=== PATIENT | male | born 1945 | race Two or more races ===

== ENCOUNTER → 2019-05-15 | Emergency (ER) | payer OTHER, MEDICAID ==
[~2019-05-15] VITALS: Ht 170.2 cm; Wt 71.2 kg
[~2019-05-15] MED LIST: CLINDAMYCIN 600 MG/4 ML VL IM ONE; LISI-285 PO; cefTRIAXone W LIDOCAINE 1 GM IM IM ONE
[2019-05-15 13:14] LABS: Basophils # (auto) 0.1 10 ^3/uL (0-0.2); Basophils % (auto) 1.4 % (0.0-2.0); Eosinophils # (auto) 0.2 10 ^3/uL (0-0.8); Hematocrit 34.5 % (41.0-53.0); Hemoglobin 11.6 g/dL (13.5-17.5); Lymphocytes # (auto) 1.4 10 ^3/uL (0.4-5.4); Lymphocytes % (auto) 14.8 % (10.0-50.0); Mean Corpuscular Hemoglobin 29.6 pg (28.0-32.0); Mean Corpuscular Hgb Conc. 33.5 g/dL (32.0-36.0); Mean Corpuscular Volume 88.4 fL (80.0-100.0); Monocytes # (auto) 0.7 10 ^3/uL (0-1.3); Monocytes % (auto) 8.1 % (0.0-12.0); Neutrophils # (auto) 6.7 10 ^3/uL (1.6-8.6); Neutrophils % (auto) 73.7 % (37.0-80.0); Platelet Count (auto) 382 10^3/uL (140-450); Red Cell Distribution Width 13.9 % (11.8-14.3); White Blood Cell 9.1 10^3/uL (4.4-10.8)
[2019-05-15 13:33] LABS: Albumin 2.7 g/dL (3.4-5.0); Calcium 8.7 mg/dL (8.5-10.1); Potassium 4.8 mmol/L (3.5-5.1)
[2019-05-15 13:35] LABS: BUN/Creatinine Ratio 10.9
[2019-05-15 13:37] LABS: Bilirubin, Total 0.3 mg/dL (0.2-1.0); Total Protein 7.6 g/dL (6.4-8.2)
[2019-05-15 15:54] VITALS: BP 164/90
== END | disposition home or self-care (01) ==
LOC: ER 11:45
DX: S91.312A Laceration without foreign body, left foot, initial encounter (principal); E11.9 Type 2 diabetes mellitus without complications; I10 Essential (primary) hypertension; W26.8XXA Contact with other sharp object(s), not elsewhere classified, initial encounter; Y93.89 Activity, other specified; Y99.8 Other external cause status; Y92.89 Other specified places as the place of occurrence of the external cause
CPT/HCPCS: 36415; 73700; 80053; 82962; 85025; 96372; 99284; J0696

== ENCOUNTER 2023-01-07 20:54 | Inpatient (IN) | payer OTHER, MEDICAID ==
[~2023-01-07] VITALS: Ht 162.6 cm; Wt 59.2 kg
[~2023-01-07 20:54] MED LIST changes: -CLINDAMYCIN 600 MG/4 ML VL IM ONE; -cefTRIAXone W LIDOCAINE 1 GM IM IM ONE
[2023-01-08] VITALS (10 sets, daily range): BP systolic 126–155; BP diastolic 66–96; PULSE 76–101; RESP 17–18; TEMP 37; O2SAT 92–98
[2023-01-08] MEDS ORDERED: ONDANSETRON HCL 4 MG/2 ML VIAL IV PRN (00:45)
[2023-01-08] MEDS ORDERED: DOCUSATE SOD 100 MG CAP PO PRN (00:45)
[2023-01-08] MEDS ORDERED: IPRATROPIUM BROM 0.5 MG/2.5ML INH SOL NEB PRN (00:45)
[2023-01-08] MEDS ORDERED: MORPHINE SULFATE INJ 2 MG/ml SYRG IV PRN (00:45)
[2023-01-08] MEDS ORDERED: ALBUTEROL SULF 2.5 MG/0.5ML(0.5%) NEB SOLN NEB PRN (00:45)
[2023-01-08] MEDS ORDERED: ACETAMINOPHEN 325 MG TAB PO PRN (00:45)
[2023-01-08] MEDS ORDERED: NITROGLYCERIN 0.4 MG SL TAB SL PRN (00:45)
[2023-01-08] MEDS ORDERED: DEXTROSE (50%) 50ML SYRG IV PRN (01:00)
[2023-01-08] MEDS ORDERED: cloNIDine HCL 0.1 MG TAB PO PRN (01:15)
[2023-01-08] MEDS ORDERED: LABETALOL HCL 5 MG/ML 4ML SYRINGE IV PRN (01:15)
[2023-01-08] MEDS: cefTRIAXone 1GM/50ML D5W 50 ML IV SCH ×2 (02:53→21:19)
[2023-01-08 06:33] LABS: Basophils # (auto) 0.1 10 ^3/uL (0-0.2); Basophils % (auto) 0.7 % (0.0-2.0); Eosinophils # (auto) 0.1 10 ^3/uL (0-0.8); Eosinophils % (auto) 1.3 % (0.0-7.0); Hematocrit 33.3 % (41.0-53.0); Lymphocytes % (auto) 11.5 % (10.0-50.0); Mean Corpuscular Volume 93.7 fL (80.0-100.0); Monocytes # (auto) 0.7 10 ^3/uL (0-1.3); Monocytes % (auto) 8.4 % (0.0-12.0); Neutrophils % (auto) 78.1 % (37.0-80.0); Nucleated Red Blood Cells % 0.1 %; Red Blood Cells 3.55 10^6/uL (4.5-5.90); Red Cell Distribution Width 15.2 % (11.8-14.3); White Blood Cell 8.9 10^3/uL (4.4-10.8)
[2023-01-08] MEDS: ACCU-CHEK COMFORT CURVE STRIP VI SCH ×4 (06:33→21:19)
[2023-01-08] MEDS: InsuLIN REG 1unit/0.01ml Soln (100units/ml) SC SCH ×4 (06:42→21:27)
[2023-01-08] MEDS: HEPARIN SODIUM (PORCINE) 5000 UNITS/ML 1ML VIAL SC SCH ×2 (10:00→21:19)
[2023-01-08] MEDS ORDERED: AZITHROMYCIN 500MG/ 250ML 250 ML IV SCH (10:00)
[2023-01-08] MEDS: amLODIPine BESYLATE 5 MG TAB PO SCH (10:49)
[2023-01-08 11:07] LABS: Albumin 3.4 g/dL (3.2-4.8); Alkaline Phosphatase 77 U/L (46-116); Anion Gap 7 (5-15); Aspartate Aminotransferase 8 U/L (13-40); BUN/Creatinine Ratio 5.2 (10.0-20.0); Bilirubin, Total 0.4 mg/dL (0.2-1.0); Blood Urea Nitrogen 17 mg/dL (9-23); Calcium 8.5 mg/dL (8.5-10.1); Carbon Dioxide 27 mmol/L (20-30); Chloride 104 mmol/L (98-107); Glucose 184 mg/dL (74-106); Phosphorus 2.6 mg/dL (2.4-5.1); Potassium 4.9 mmol/L (3.5-5.1); Sodium 138 mmol/L (136-145); Total Protein 6.6 g/dL (5.7-8.2)
[2023-01-08 11:14] LABS: Alanine Aminotransferase < 9 U/L (7-40)
[2023-01-08 11:44] LABS: Magnesium 1.9 mg/dL (1.6-2.6)
[2023-01-08] MEDS ORDERED: CLON0.1T PO (15:25)
[2023-01-08] MEDS ORDERED: PANT40T PO (15:25)
[2023-01-08] MEDS ORDERED: ATOR20TA50 PO (15:25)
[2023-01-08] MEDS ORDERED: AMLO1TAB23 PO (15:25)
[2023-01-08] MEDS ORDERED: AMOX500T86 PO (15:25)
[2023-01-08] MEDS ORDERED: ATORVASTATIN 20 MG TAB PO SCH (22:00)
[2023-01-09 05:00] VITALS: BP_SYST 140; BP_SYST 150; BP_DIAS 70; BP_DIAS 89; PULSE 80; RESP 17; TEMP 98.1; O2SAT 95
[2023-01-09] MEDS: ACCU-CHEK COMFORT CURVE STRIP VI SCH (06:09)
[2023-01-09] MEDS: InsuLIN REG 1unit/0.01ml Soln (100units/ml) SC SCH (06:09)
[2023-01-09 06:57] LABS: Anion Gap 8 (5-15); Carbon Dioxide 25 mmol/L (20-30); Chloride 101 mmol/L (98-107); Potassium 5.3 mmol/L (3.5-5.1); Sodium 134 mmol/L (136-145)
[2023-01-09 06:58] LABS: Calcium 8.4 mg/dL (8.5-10.1)
[2023-01-09] MEDS ORDERED: SODIUM CHL 0.9% 1000 ML BAG XX ONE ×2 (07:00)
[2023-01-09 07:03] LABS: BUN/Creatinine Ratio 6.3 (10.0-20.0); Glucose 91 mg/dL (74-106)
[2023-01-09 07:04] LABS: Basophils # (auto) 0.1 10 ^3/uL (0-0.2); Basophils % (auto) 1.1 % (0.0-2.0); Eosinophils # (auto) 0.6 10 ^3/uL (0-0.8); Eosinophils % (auto) 7.6 % (0.0-7.0); Hematocrit 31.7 % (41.0-53.0); Hemoglobin 10.5 g/dL (13.5-17.5); Lymphocytes # (auto) 1.4 10 ^3/uL (0.4-5.4); Lymphocytes % (auto) 17.4 % (10.0-50.0); Mean Corpuscular Hemoglobin 31.4 pg (28.0-32.0); Mean Corpuscular Hgb Conc. 33.2 g/dL (32.0-36.0); Mean Corpuscular Volume 94.6 fL (80.0-100.0); Monocytes # (auto) 0.8 10 ^3/uL (0-1.3); Monocytes % (auto) 10.3 % (0.0-12.0); Neutrophils % (auto) 63.6 % (37.0-80.0); Nucleated Red Blood Cells % 0.1 %; Red Blood Cells 3.35 10^6/uL (4.5-5.90); Red Cell Distribution Width 15.7 % (11.8-14.3); White Blood Cell 7.9 10^3/uL (4.4-10.8)
[2023-01-09 07:08] LABS: Blood Urea Nitrogen 27 mg/dL (9-23)
[2023-01-09 07:28] VITALS: O2SAT 95
[2023-01-09 08:00] VITALS: PULSE 98; RESP 18; O2SAT 98
[2023-01-09] MEDS: HEPARIN SODIUM (PORCINE) 5000 UNITS/ML 1ML VIAL SC SCH (10:00)
[2023-01-09] MEDS: amLODIPine BESYLATE 5 MG TAB PO SCH (10:00)
== END 2023-01-09 10:30 | disposition home or self-care (01) | DRG 202 ==
LOC: TELE-WESTW 01-08 00:06 → UNDOADMIN 01-08 00:06 → TELE-WESTW 01-08 00:58
PROVIDERS: ADMIT Nurse Practitioner Family; ATTEND Nurse Practitioner Family
DX: J20.9 Acute bronchitis, unspecified (principal); N18.6 End stage renal disease; I12.0 Hypertensive chronic kidney disease with stage 5 chronic kidney disease or end stage renal disease; J90 Pleural effusion, not elsewhere classified; K21.9 Gastro-esophageal reflux disease without esophagitis; E11.22 Type 2 diabetes mellitus with diabetic chronic kidney disease; E11.65 Type 2 diabetes mellitus with hyperglycemia; D63.1 Anemia in chronic kidney disease; R00.0 Tachycardia, unspecified; Z99.2 Dependence on renal dialysis; Z83.3 Family history of diabetes mellitus
CPT/HCPCS: 36415; 71045; 80048; 80053; 82306; 82962; 83036; 83605; 83735; 83880; 83970; 84100; 85025; 87040; 87081; 87340; 97110; 97116; 97163; 97530; G0378; J0696; J1815

== ENCOUNTER 2023-02-28 08:27 | Inpatient (IN) | payer OTHER, MEDICAID ==
[~2023-02-28] VITALS: Ht 170.2 cm; Wt 68.2 kg
[2023-02-28] VITALS (7 sets, daily range): BP systolic 134; BP diastolic 83; PULSE 94–103; RESP 14–20; TEMP 97.9; O2SAT 92–99
[2023-02-28] MEDS: SODIUM ZIRCONIUM CYCL 10 GM PAK PO SCH ×4 (06:00→22:00)
[~2023-02-28 08:27] MED LIST changes: +AMLO1TAB23 PO; +AMOX500T86 PO; +ATOR20TA50 PO; +CLON0.1T PO; -LISI-285 PO; +PANT40T PO
[2023-02-28 09:51] LABS: Basophils # (auto) 0.1 10 ^3/uL (0-0.2); Basophils % (auto) 0.9 % (0.0-2.0); Eosinophils # (auto) 0.3 10 ^3/uL (0-0.8); Eosinophils % (auto) 3.7 % (0.0-7.0); Hematocrit 33.1 % (41.0-53.0); Hemoglobin 10.9 g/dL (13.5-17.5); Lymphocytes # (auto) 0.9 10 ^3/uL (0.4-5.4); Lymphocytes % (auto) 13.1 % (10.0-50.0); Mean Corpuscular Hgb Conc. 32.9 g/dL (32.0-36.0); Mean Corpuscular Volume 94.3 fL (80.0-100.0); Monocytes # (auto) 0.6 10 ^3/uL (0-1.3); Monocytes % (auto) 9.1 % (0.0-12.0); Neutrophils # (auto) 5.2 10 ^3/uL (1.6-8.6); Neutrophils % (auto) 73.2 % (37.0-80.0); Nucleated Red Blood Cells % 0.2 %; Red Blood Cells 3.51 10^6/uL (4.5-5.90); Red Cell Distribution Width 15.9 % (11.8-14.3); White Blood Cell 7.1 10^3/uL (4.4-10.8)
[2023-02-28 09:58] LABS: Alanine Aminotransferase 10 U/L (7-40); Albumin 3.9 g/dL (3.2-4.8); Alkaline Phosphatase 82 U/L (46-116); Anion Gap 17 (5-15); Aspartate Aminotransferase 11 U/L (13-40); BUN/Creatinine Ratio 9.2 (10.0-20.0); Bilirubin, Total 0.3 mg/dL (0.2-1.0); Blood Urea Nitrogen 60 mg/dL (9-23); Calcium 9.3 mg/dL (8.5-10.1); Carbon Dioxide 17 mmol/L (20-30); Chloride 102 mmol/L (98-107); Glucose 99 mg/dL (74-106); INR 1.17 (0.9-1.15); Partial Thromboplastin Time 31.3 SEC (24.5-34.5); Prothrombin Time 12.2 sec (9.3-11.8); Sodium 136 mmol/L (136-145); Total Protein 7.3 g/dL (5.7-8.2)
[2023-02-28 10:04] LABS: Potassium 6.8 mmol/L (3.5-5.1)
[2023-02-28 10:14] LABS: Magnesium 2.2 mg/dL (1.6-2.6)
[2023-02-28] MEDS ORDERED: FUROSEMIDE 40 MG/4 ML VIAL IV ONE (10:30)
[2023-02-28] MEDS ORDERED: SODIUM BICARBONATE 8.4 % INJ 50ML VIAL IV ONE (10:30)
[2023-02-28] MEDS ORDERED: NITROGLYCERIN 2% OINT 1GM PKG TD ONE (10:30)
[2023-02-28] MEDS ORDERED: SODIUM ZIRCONIUM CYCL 10 GM PAK PO ONE (10:30)
[2023-02-28] MEDS ORDERED: DEXTROSE (50%) 50ML SYRG IV ONE ×2 (10:30→12:45)
[2023-02-28] MEDS ORDERED: CALCIUM GLUC 1,000mg/50ml-NS 50 ML IV ONE (10:30)
[2023-02-28] MEDS ORDERED: InsuLIN REG 1unit/0.01ml Soln (100units/ml) IV ONE ×2 (10:30→12:45)
[2023-02-28] MEDS ORDERED: ALBUTEROL SULF 2.5 MG/0.5ML(0.5%) NEB SOLN NEB ONE ×2 (10:30→12:45)
[2023-02-28] MEDS ORDERED: ALBUTEROL SULF 2.5 MG/0.5ML(0.5%) NEB SOLN ONE (10:48)
[2023-02-28] MEDS ORDERED: MORPHINE SULFATE INJ 2 MG/ml SYRG IV PRN (12:45)
[2023-02-28] MEDS ORDERED: SODIUM CHL 0.9% 1000 ML BAG XX ONE (12:45)
[2023-02-28] MEDS ORDERED: SODIUM BICARBONATE 8.4% INJ 50ML SYRINGE IV ONE (12:45)
[2023-02-28] MEDS ORDERED: NITROGLYCERIN 0.4 MG SL TAB SL PRN (12:45)
[2023-02-28] MEDS ORDERED: amLODIPine BESYLATE 5 MG TAB PO ONE (12:45)
[2023-02-28 15:10] LABS: Anion Gap 19 (5-15); Carbon Dioxide 16 mmol/L (20-30); Chloride 103 mmol/L (98-107); Potassium 4.9 mmol/L (3.5-5.1); Sodium 138 mmol/L (136-145)
[2023-02-28 15:11] LABS: Calcium 8.9 mg/dL (8.7-10.4)
[2023-02-28 15:16] LABS: Glucose 94 mg/dL (74-106)
[2023-02-28 15:17] LABS: BUN/Creatinine Ratio 7.3 (10.0-20.0); Blood Urea Nitrogen 52 mg/dL (9-23)
[2023-02-28] MEDS: cloNIDine HCL 0.1 MG TAB PO SCH (18:08)
[2023-02-28] MEDS ORDERED: EPOETIN ALFA-EPBX 10,000 UNIT/1ML VIAL SC ONE (21:00)
[2023-02-28] MEDS ORDERED: ATORVASTATIN 20 MG TAB PO SCH (22:00)
[2023-03-01] VITALS (8 sets, daily range): BP systolic 104–146; BP diastolic 58–82; PULSE 73–146; RESP 16–97; TEMP 97.6–98.7; O2SAT 93–99
[2023-03-01] MEDS ORDERED: amLODIPine BESYLATE 5 MG TAB PO SCH (10:00)
[2023-03-01] MEDS ORDERED: PANTOPRAZOLE 40 MG TAB PO SCH (10:00)
[2023-03-01] MEDS ORDERED: SODIUM ZIRCONIUM CYCL 10 GM PAK PO SCH (12:30)
[2023-03-01] MEDS: cloNIDine HCL 0.1 MG TAB PO SCH (19:01)
== END 2023-03-01 22:13 | disposition home or self-care (01) | DRG 640 ==
LOC: EDUNIT# 08:27 → ER 08:27 → EDBD 08:27 → TELE 12:33 → TELE-WESTW 18:42
PROVIDERS: ADMIT Hospitalist; ATTEND Hospitalist
PROC: 5A1D70Z Performance of Urinary Filtration, Intermittent, Less than 6 Hours Per Day (ICD-10-PCS; principal; 2023-02-28)
DX: E87.5 Hyperkalemia (principal); J81.0 Acute pulmonary edema; N18.6 End stage renal disease; I13.2 Hypertensive heart and chronic kidney disease with heart failure and with stage 5 chronic kidney disease, or end stage renal disease; D63.1 Anemia in chronic kidney disease; E11.22 Type 2 diabetes mellitus with diabetic chronic kidney disease; I50.9 Heart failure, unspecified; Z83.3 Family history of diabetes mellitus; Z99.2 Dependence on renal dialysis
CPT/HCPCS: 36415; 71045; 80048; 80053; 82962; 83735; 83880; 84132; 84484; 85025; 85610; 85730; 87340; 90935; 93005; 94640; 96365; 96375; 99291; G0378; J1642; J1815

== ENCOUNTER 2023-05-12 21:04 | Inpatient (IN) | payer OTHER, MEDICAID ==
[~2023-05-12] VITALS: Ht 170.2 cm; Wt 71.5 kg
[~2023-05-12 21:04] MED LIST changes: -AMOX500T86 PO
[2023-05-12 23:41] LABS: Basophils # (auto) 0.1 10 ^3/uL (0-0.2); Basophils % (auto) 1.3 % (0.0-2.0); Eosinophils # (auto) 0.7 10 ^3/uL (0-0.8); Eosinophils % (auto) 8.5 % (0.0-7.0); Hematocrit 35.1 % (41.0-53.0); Lymphocytes # (auto) 1.4 10 ^3/uL (0.4-5.4); Lymphocytes % (auto) 16.2 % (10.0-50.0); Mean Corpuscular Hemoglobin 33.4 pg (28.0-32.0); Mean Corpuscular Hgb Conc. 34.1 g/dL (32.0-36.0); Monocytes # (auto) 0.8 10 ^3/uL (0-1.3); Monocytes % (auto) 9.6 % (0.0-12.0); Neutrophils # (auto) 5.5 10 ^3/uL (1.6-8.6); Neutrophils % (auto) 64.4 % (37.0-80.0); Nucleated Red Blood Cells % 0.1 %; Red Blood Cells 3.58 10^6/uL (4.5-5.90); Red Cell Distribution Width 15.8 % (11.8-14.3); White Blood Cell 8.6 10^3/uL (4.4-10.8)
[2023-05-12 23:53] LABS: Alkaline Phosphatase 116 U/L (46-116); Anion Gap 4 (5-15); Aspartate Aminotransferase 13 U/L (13-40); BUN/Creatinine Ratio 10.7 (10.0-20.0); Bilirubin, Total 0.3 mg/dL (0.2-1.0); Blood Urea Nitrogen 45 mg/dL (9-23); Calcium 9.7 mg/dL (8.7-10.4); Carbon Dioxide 25 mmol/L (20-30); Chloride 102 mmol/L (98-107); Glucose 138 mg/dL (74-106); Sodium 131 mmol/L (136-145)
[2023-05-13] VITALS (7 sets, daily range): BP systolic 136–181; BP diastolic 75–96; PULSE 73–88; RESP 15–98; TEMP 97.8–98.4; O2SAT 95–98
[2023-05-13 00:03] LABS: Alanine Aminotransferase < 9 U/L (7-40); Potassium 6.2 mmol/L (3.5-5.1)
[2023-05-13] MEDS ORDERED: DEXTROSE (50%) 50ML SYRG IV PRN (01:00)
[2023-05-13] MEDS ORDERED: ONDANSETRON HCL 4 MG/2 ML VIAL IV PRN (01:00)
[2023-05-13] MEDS ORDERED: ACETAMINOPHEN 325 MG TAB PO PRN (01:00)
[2023-05-13] MEDS: DEXTROSE (50%) 50ML SYRG IV ONE (03:39)
[2023-05-13] MEDS: SODIUM ZIRCONIUM CYCL 10 GM PAK PO ONE (03:39)
[2023-05-13] MEDS: InsuLIN REG 1unit/0.01ml Soln (100units/ml) IV ONE (03:41)
[2023-05-13] MEDS: hydrALAZINE HCL 20 MG/ML VL IV PRN (03:49)
[2023-05-13] MEDS: SODIUM BICARB 8.4% 50Meq/50ml SYR INJ IV ONE (03:53)
[2023-05-13] MEDS: CALCIUM GLUC 1,000mg/50ml-NS 50 ML IV ONE (03:56)
[2023-05-13] MEDS: VANCOMYCIN 1GM/200ML 200 ML IV ONE (05:29)
[2023-05-13] MEDS: cloNIDine HCL 0.1 MG TAB PO ONE (06:05)
[2023-05-13] MEDS: ACCU-CHEK COMFORT CURVE STRIP VI SCH (06:46)
[2023-05-13] MEDS: InsuLIN REG 1unit/0.01ml Soln (100units/ml) SC SCH (06:46)
[2023-05-13 06:59] LABS: Chloride 103 mmol/L (98-107); Potassium 5.1 mmol/L (3.5-5.1); Sodium 134 mmol/L (136-145)
[2023-05-13 07:00] LABS: Anion Gap 6 (5-15); Calcium 9.3 mg/dL (8.5-10.1); Carbon Dioxide 25 mmol/L (20-30)
[2023-05-13 07:06] LABS: BUN/Creatinine Ratio 11.2 (10.0-20.0); Blood Urea Nitrogen 48 mg/dL (9-23)
[2023-05-13 07:09] LABS: Glucose 48 mg/dL (74-106)
[2023-05-13] MEDS: CALCIUM ACETATE 667 MG CAP PO SCH (09:47)
[2023-05-13] MEDS: CLINDAMYCIN 600MG IV 50 ML IV SCH (09:47)
[2023-05-13] MEDS: hydroCHLOROthiazide 25 MG TAB PO SCH (11:58)
[2023-05-13] MEDS: amLODIPine BESYLATE 5 MG TAB PO SCH (11:59)
[2023-05-13] MEDS ORDERED: PERITONEAL DIALYSIS 1.5% SOLN 2,000 ML IP SCH (18:00)
[2023-05-14] VITALS (8 sets, daily range): BP systolic 101–143; BP diastolic 59–72; PULSE 76–91; RESP 18–20; TEMP 97.5–99; O2SAT 94–99
[2023-05-14 06:13] LABS: Basophils # (auto) 0.1 10 ^3/uL (0-0.2); Basophils % (auto) 1.1 % (0.0-2.0); Eosinophils # (auto) 0.6 10 ^3/uL (0-0.8); Eosinophils % (auto) 6.8 % (0.0-7.0); Hemoglobin 10.7 g/dL (13.5-17.5); Lymphocytes % (auto) 11.5 % (10.0-50.0); Mean Corpuscular Hemoglobin 31.7 pg (28.0-32.0); Mean Corpuscular Hgb Conc. 33.4 g/dL (32.0-36.0); Mean Corpuscular Volume 94.9 fL (80.0-100.0); Monocytes # (auto) 0.7 10 ^3/uL (0-1.3); Monocytes % (auto) 8.6 % (0.0-12.0); Neutrophils # (auto) 6.1 10 ^3/uL (1.6-8.6); Nucleated Red Blood Cells % 0.1 %; Red Blood Cells 3.38 10^6/uL (4.5-5.90); Red Cell Distribution Width 15.4 % (11.8-14.3); White Blood Cell 8.5 10^3/uL (4.4-10.8)
[2023-05-14 06:32] LABS: Albumin 3.2 g/dL (3.2-4.8); Alkaline Phosphatase 93 U/L (46-116); Anion Gap 6 (5-15); Aspartate Aminotransferase 10 U/L (13-40); BUN/Creatinine Ratio 11.9 (10.0-20.0); Calcium 8.6 mg/dL (8.5-10.1); Carbon Dioxide 24 mmol/L (20-30); Chloride 100 mmol/L (98-107); Glucose 87 mg/dL (74-106); Sodium 130 mmol/L (136-145)
[2023-05-14 06:33] LABS: Bilirubin, Total 0.2 mg/dL (0.2-1.0)
[2023-05-14 06:35] LABS: Total Protein 6.1 g/dL (5.7-8.2)
[2023-05-14 06:45] LABS: Alanine Aminotransferase < 9 U/L (7-40); Blood Urea Nitrogen 59 mg/dL (9-23)
[2023-05-14 06:47] LABS: Potassium 6.3 mmol/L (3.5-5.1)
[2023-05-14] MEDS: SODIUM CHL 0.9% 1000 ML BAG XX ONE (07:15)
[2023-05-15 05:00] VITALS: BP 130/71; PULSE 71; RESP 18; TEMP 98.4; O2SAT 94
[2023-05-15 06:30] LABS: Anion Gap 6 (5-15); Calcium 8.3 mg/dL (8.5-10.1); Carbon Dioxide 26 mmol/L (20-30); Chloride 100 mmol/L (98-107); Potassium 5.2 mmol/L (3.5-5.1); Sodium 132 mmol/L (136-145)
[2023-05-15 06:36] LABS: BUN/Creatinine Ratio 10.7 (10.0-20.0); Glucose 83 mg/dL (74-106)
[2023-05-15 06:45] LABS: Blood Urea Nitrogen 39 mg/dL (9-23)
[2023-05-15 08:00] VITALS: PULSE 80; PULSE 91; RESP 18; O2SAT 94
[2023-05-15 08:39] LABS: Hepatitis B Surface Antibody Negative (Negative)
[2023-05-15 08:50] LABS: Hepatitis B Surface Antigen Negative (Negative)
[2023-05-15 09:00] VITALS: BP 135/73; PULSE 91; RESP 18; TEMP 97.8; O2SAT 94
[2023-05-15] MEDS ORDERED: ATOR10TA PO (09:36)
[2023-05-15] MEDS ORDERED: LISI-706 PO (09:36)
[2023-05-15] MEDS ORDERED: CALC667C PO (09:36)
[2023-05-15] MEDS ORDERED: DOXY1CAP57 PO (10:37)
[2023-05-15 13:00] VITALS: BP 136/74; PULSE 80; RESP 18; TEMP 97.8; O2SAT 99
[2023-05-15 17:00] VITALS: BP 133/78; PULSE 86; RESP 19; TEMP 97.9; O2SAT 94
[2023-05-15 17:04] VITALS: BP 133/78; PULSE 86; RESP 19; TEMP 97.9; O2SAT 94
== END 2023-05-15 18:40 | disposition home health service (06) | DRG 640 ==
LOC: EDBD 21:04 → ER 21:04 → OVERFLOW 05-13 00:55 → EAST 05-13 16:38 → TELE-EAST 05-13 17:24
PROVIDERS: ADMIT Nurse Practitioner; ATTEND Internal Medicine Geriatric Medicine
PROC: 5A1D70Z Performance of Urinary Filtration, Intermittent, Less than 6 Hours Per Day (ICD-10-PCS; principal; 2023-05-14)
DX: E87.5 Hyperkalemia (principal); N18.6 End stage renal disease; L03.116 Cellulitis of left lower limb; I12.0 Hypertensive chronic kidney disease with stage 5 chronic kidney disease or end stage renal disease; E87.1 Hypo-osmolality and hyponatremia; E11.621 Type 2 diabetes mellitus with foot ulcer; Z99.2 Dependence on renal dialysis; E11.22 Type 2 diabetes mellitus with diabetic chronic kidney disease; E78.5 Hyperlipidemia, unspecified; D63.1 Anemia in chronic kidney disease; Z83.3 Family history of diabetes mellitus; L97.509 Non-pressure chronic ulcer of other part of unspecified foot with unspecified severity
CPT/HCPCS: 36415; 73630; 80048; 80053; 80202; 82962; 83605; 85025; 86706; 87040; 87340; 90935; 93005; 93971; G0378; J1642; J1815; J3490

== ENCOUNTER 2023-09-24 09:35 | Inpatient (IN) | payer OTHER, MEDICAID ==
[~2023-09-24] VITALS: Ht 170.2 cm; Wt 65.1 kg
[~2023-09-24 09:35] MED LIST changes: +ATOR10TA PO; -ATOR20TA50 PO; +CALC667C PO; +DOXY1CAP57 PO; +LISI-706 PO
[2023-09-24 10:00] VITALS: PULSE 85; RESP 16; O2SAT 97
[2023-09-24 12:23] LABS: Basophils # (auto) 0.1 10 ^3/uL (0-0.2); Eosinophils # (auto) 0.4 10 ^3/uL (0-0.8); Eosinophils % (auto) 5.5 % (0.0-7.0); Hematocrit 39.7 % (41.0-53.0); Hemoglobin 13.3 g/dL (13.5-17.5); Lymphocytes # (auto) 1.3 10 ^3/uL (0.4-5.4); Mean Corpuscular Hemoglobin 32.2 pg (28.0-32.0); Mean Corpuscular Hgb Conc. 33.6 g/dL (32.0-36.0); Mean Corpuscular Volume 95.8 fL (80.0-100.0); Monocytes # (auto) 0.7 10 ^3/uL (0-1.3); Monocytes % (auto) 10.5 % (0.0-12.0); Neutrophils # (auto) 4.6 10 ^3/uL (1.6-8.6); Nucleated Red Blood Cells % 0.2 %; Red Blood Cells 4.14 10^6/uL (4.5-5.90); Red Cell Distribution Width 17.9 % (11.8-14.3); White Blood Cell 7.1 10^3/uL (4.4-10.8)
[2023-09-24 12:36] LABS: Albumin 3.8 g/dL (3.2-4.8); Alkaline Phosphatase 94 U/L (46-116); Anion Gap 8 (5-15); Aspartate Aminotransferase 11 U/L (13-40); BUN/Creatinine Ratio 4.9 (10.0-20.0); Bilirubin, Total 0.6 mg/dL (0.2-1.0); Blood Urea Nitrogen 19 mg/dL (9-23); Calcium 9.6 mg/dL (8.7-10.4); Carbon Dioxide 25 mmol/L (20-30); Chloride 102 mmol/L (98-107); Glucose 122 mg/dL (74-106); Lipase 18 U/L (12-53); Potassium 5.1 mmol/L (3.5-5.1); Sodium 135 mmol/L (136-145)
[2023-09-24 12:37] LABS: Total Protein 7.2 g/dL (5.7-8.2)
[2023-09-24 12:45] LABS: Alanine Aminotransferase < 9 U/L (7-40)
[2023-09-24] MEDS: cloNIDine HCL 0.1 MG TAB PO ONE (13:33)
[2023-09-24] MEDS ORDERED: ACETAMINOPHEN 325 MG TAB PO PRN (15:30)
[2023-09-24] MEDS ORDERED: HYDROcodone-ACET 5/325MG TAB PO PRN (15:30)
[2023-09-24] MEDS ORDERED: ONDANSETRON HCL 4 MG/2 ML VIAL IV PRN (15:30)
[2023-09-24] MEDS ORDERED: DOCUSATE SOD 100 MG CAP PO PRN (15:30)
[2023-09-24 15:34] LABS: Urine Blood Negative /uL (Negative); Urine Clarity Clear (Clear); Urine Color Yellow (Yellow); Urine Protein, UAD 3+ (Negative); Urine Specific Gravity 1.014 (1.001-1.035); Urine Urobilinogen Normal (Negative)
[2023-09-24 16:48] LABS: Creatinine, Urine 35.81 mg/dL (30.0-125.0)
[2023-09-24] MEDS: LACTATED RINGER'S 1,000 ML IV ONE (16:51)
[2023-09-24] MEDS: cloNIDine HCL 0.1 MG TAB PO SCH (18:15)
[2023-09-24] MEDS: TAMSULOSIN HYDROCHLORIDE 0.4 MG CAP PO SCH (18:15)
[2023-09-25] VITALS (10 sets, daily range): BP systolic 128–152; BP diastolic 67–87; PULSE 69–78; RESP 14–18; TEMP 96.8–98.3; O2SAT 92–97
[2023-09-25] MEDS: hydrALAZINE HCL 20 MG/ML VL IV PRN (00:21)
[2023-09-25] MEDS: SODIUM CHLOR 0.9% PF (SALINE LOCK) 10ML VIAL/SYR IV SCH (00:21)
[2023-09-25] MEDS: CALCIUM ACETATE 667 MG CAP PO SCH (00:22)
[2023-09-25] MEDS: ATORVASTATIN 20 MG TAB PO SCH (00:23)
[2023-09-25 09:02] LABS: Hematocrit 42.5 % (41.0-53.0); Hemoglobin 14.1 g/dL (13.5-17.5)
[2023-09-25 09:13] LABS: Chloride 102 mmol/L (98-107); Potassium 4.6 mmol/L (3.5-5.1); Sodium 136 mmol/L (136-145)
[2023-09-25 09:14] LABS: Anion Gap 8 (5-15); Calcium 9.2 mg/dL (8.7-10.4); Carbon Dioxide 26 mmol/L (20-30)
[2023-09-25 09:19] LABS: BUN/Creatinine Ratio 6.5 (10.0-20.0); Glucose 91 mg/dL (74-106)
[2023-09-25 09:28] LABS: % Iron Saturation 25.1 % (20-55)
[2023-09-25 09:44] LABS: Hepatitis B Surface Antigen Negative (Negative)
[2023-09-25] MEDS: PANTOPRAZOLE 40 MG TAB PO SCH (09:44)
[2023-09-25] MEDS: amLODIPine BESYLATE 5 MG TAB PO SCH (09:46)
[2023-09-25 09:51] LABS: Blood Urea Nitrogen 29 mg/dL (9-23)
[2023-09-25 10:06] LABS: Hepatitis A Ab IgM Negative; Hepatitis B Core IgM Negative
[2023-09-25 10:14] LABS: Hepatitis C Antibody Reactive (Negative)
[2023-09-25 12:15] LABS: Rapid Influenza A Negative (Negative); Rapid Influenza B Negative (Negative)
[2023-09-25 12:40] LABS: COVID19 ANTIGEN SOFIA FIA NEGATIVE (NEGATIVE)
[2023-09-25] MEDS: LISINOPRIL 20 MG TAB PO SCH (12:54)
[2023-09-25] MEDS: SODIUM CHL 0.9% 1000 ML BAG XX ONE (18:26)
[2023-09-26] VITALS (7 sets, daily range): BP systolic 121–148; BP diastolic 74–82; PULSE 74–84; RESP 14–18; TEMP 97.3–98; O2SAT 94–98
[2023-09-26 07:53] LABS: Basophils # (auto) 0.1 10 ^3/uL (0-0.2); Basophils % (auto) 0.8 % (0.0-2.0); Eosinophils # (auto) 0.2 10 ^3/uL (0-0.8); Eosinophils % (auto) 2.3 % (0.0-7.0); Hematocrit 41.6 % (41.0-53.0); Hemoglobin 13.9 g/dL (13.5-17.5); Lymphocytes # (auto) 0.8 10 ^3/uL (0.4-5.4); Lymphocytes % (auto) 10.1 % (10.0-50.0); Mean Corpuscular Hgb Conc. 33.5 g/dL (32.0-36.0); Mean Corpuscular Volume 95.7 fL (80.0-100.0); Monocytes # (auto) 0.6 10 ^3/uL (0-1.3); Monocytes % (auto) 7.7 % (0.0-12.0); Neutrophils # (auto) 6.4 10 ^3/uL (1.6-8.6); Neutrophils % (auto) 79.1 % (37.0-80.0); Nucleated Red Blood Cells % 0.2 %; Red Blood Cells 4.34 10^6/uL (4.5-5.90); Red Cell Distribution Width 17.8 % (11.8-14.3); White Blood Cell 8.1 10^3/uL (4.4-10.8)
[2023-09-26 08:04] LABS: Albumin 3.5 g/dL (3.2-4.8); Alkaline Phosphatase 90 U/L (46-116); Anion Gap 10 (5-15); Aspartate Aminotransferase < 8 U/L (13-40); Blood Urea Nitrogen 18 mg/dL (9-23); Calcium 9.2 mg/dL (8.7-10.4); Carbon Dioxide 25 mmol/L (20-30); Chloride 103 mmol/L (98-107); Glucose 95 mg/dL (74-106); Potassium 4.7 mmol/L (3.5-5.1); Sodium 138 mmol/L (136-145)
[2023-09-26 08:05] LABS: Bilirubin, Total 0.6 mg/dL (0.2-1.0); Total Protein 6.4 g/dL (5.7-8.2)
[2023-09-26 08:07] LABS: Alanine Aminotransferase < 9 U/L (7-40)
[2023-09-26] MEDS: NYSTATIN (MOUTH-THROAT) 500,000 UNITS/5 ML SUSP MT SCH (11:53)
[2023-09-27] VITALS (8 sets, daily range): BP systolic 110–152; BP diastolic 63–83; PULSE 71–93; RESP 14–21; TEMP 97.6–98.6; O2SAT 92–97
[2023-09-27 01:59] LABS: Body Fluid Polymorphonuclear 83 % (0-25); Body Fluid Red Blood Cells 603 CUMM (0-2000); Body Fluid White Blood Cells 695 CUMM (0-200)
[2023-09-27 04:11] LABS: INR 1.14 (0.9-1.15); Partial Thromboplastin Time 28.3 SEC (24.5-34.5)
[2023-09-27 06:57] LABS: Urine Bacteria None Seen /hpf (None Seen)
[2023-09-27 07:19] LABS: Urine Blood 3+ /uL (Negative); Urine Budding Yeast OCCASIONAL /hpf (None Seen); Urine Clarity Turbid (Clear); Urine Color Brown (Yellow); Urine Protein, UAD 3+ (Negative); Urine Specific Gravity 1.014 (1.001-1.035); Urine Urobilinogen Normal (Negative); Urine WBC 92 /hpf (0 - 3)
[2023-09-27 08:21] LABS: Albumin 3.3 g/dL (3.2-4.8); Alkaline Phosphatase 83 U/L (46-116); Anion Gap 9 (5-15); Aspartate Aminotransferase 9 U/L (13-40); BUN/Creatinine Ratio 5.6 (10.0-20.0); Bilirubin, Total 0.5 mg/dL (0.2-1.0); Blood Urea Nitrogen 25 mg/dL (9-23); Calcium 8.9 mg/dL (8.7-10.4); Carbon Dioxide 25 mmol/L (20-30); Chloride 105 mmol/L (98-107); Glucose 107 mg/dL (74-106); Potassium 5.2 mmol/L (3.5-5.1); Sodium 139 mmol/L (136-145); Total Protein 6.2 g/dL (5.7-8.2)
[2023-09-27 08:22] LABS: Alanine Aminotransferase < 9 U/L (7-40)
[2023-09-27] MEDS: ALPRAZolam 0.25 MG TAB PO PRN (08:50)
[2023-09-28] VITALS (7 sets, daily range): BP systolic 98–144; BP diastolic 60–80; PULSE 67–72; RESP 18–20; TEMP 97.5–97.8; O2SAT 94–96
[2023-09-28 06:08] LABS: Anion Gap 9 (5-15); Carbon Dioxide 26 mmol/L (20-30); Chloride 102 mmol/L (98-107); Potassium 4.1 mmol/L (3.5-5.1); Sodium 137 mmol/L (136-145)
[2023-09-28 06:09] LABS: Calcium 8.4 mg/dL (8.7-10.4)
[2023-09-28 06:14] LABS: BUN/Creatinine Ratio 4.3 (10.0-20.0); Blood Urea Nitrogen 15 mg/dL (9-23)
[2023-09-28 06:15] LABS: Glucose 212 mg/dL (74-106)
[2023-09-28 22:56] LABS: Body Fluid Polymorphonuclear 20 % (0-25); Body Fluid Red Blood Cells 240 CUMM (0-2000); Body Fluid White Blood Cells 275 CUMM (0-200)
[2023-09-29] VITALS (8 sets, daily range): BP systolic 101–134; BP diastolic 55–79; PULSE 67–96; RESP 16–18; TEMP 98–98.9; O2SAT 95–100
[2023-09-30] VITALS (7 sets, daily range): BP systolic 90–126; BP diastolic 57–79; PULSE 69–73; RESP 15–17; TEMP 97.6–98.7; O2SAT 95–98
[2023-09-30 07:02] LABS: Basophils # (auto) 0 10 ^3/uL (0-0.2); Basophils % (auto) 0.3 % (0.0-2.0); Eosinophils # (auto) 0.2 10 ^3/uL (0-0.8); Eosinophils % (auto) 2.7 % (0.0-7.0); Hematocrit 36.6 % (41.0-53.0); Hemoglobin 12.3 g/dL (13.5-17.5); Lymphocytes # (auto) 0.9 10 ^3/uL (0.4-5.4); Lymphocytes % (auto) 10.7 % (10.0-50.0); Mean Corpuscular Hemoglobin 31.8 pg (28.0-32.0); Mean Corpuscular Hgb Conc. 33.5 g/dL (32.0-36.0); Mean Corpuscular Volume 94.9 fL (80.0-100.0); Monocytes # (auto) 1.3 10 ^3/uL (0-1.3); Monocytes % (auto) 15.2 % (0.0-12.0); Neutrophils # (auto) 6.1 10 ^3/uL (1.6-8.6); Neutrophils % (auto) 71.1 % (37.0-80.0); Red Blood Cells 3.86 10^6/uL (4.5-5.90); Red Cell Distribution Width 16.8 % (11.8-14.3); White Blood Cell 8.5 10^3/uL (4.4-10.8)
[2023-09-30 07:45] LABS: Albumin 2.9 g/dL (3.2-4.8); Alkaline Phosphatase 80 U/L (46-116); Anion Gap 5 (5-15); Aspartate Aminotransferase < 8 U/L (13-40); BUN/Creatinine Ratio 4.2 (10.0-20.0); Blood Urea Nitrogen 16 mg/dL (9-23); Calcium 8.2 mg/dL (8.7-10.4); Carbon Dioxide 26 mmol/L (20-30); Chloride 96 mmol/L (98-107); Glucose 277 mg/dL (74-106); Magnesium 1.7 mg/dL (1.6-2.6); Potassium 4.8 mmol/L (3.5-5.1)
[2023-09-30 07:46] LABS: Bilirubin, Total 0.9 mg/dL (0.2-1.0); Total Protein 5.9 g/dL (5.7-8.2)
[2023-09-30 07:47] LABS: Alanine Aminotransferase < 9 U/L (7-40); Sodium 127 mmol/L (136-145)
[2023-09-30 14:06] LABS: Protein, Body Fluid 3.2 g/dL (.)
[2023-09-30 14:06] LABS: Albumin, Body Fluid 1.6 g/dL (Not Estab.); Protein, Body Fluid 2.6 g/dL (.)
[2023-09-30] MEDS ORDERED: TAMS-35 PO (14:37)
[2023-09-30] MEDS ORDERED: NYS5LQ MT (14:37)
[2023-10-01 08:07] LABS: PSA Free 0.42 ng/mL; Prostate Specific Antigen 1.5 ng/mL (0.0-4.0)
== END 2023-09-30 17:41 | disposition home or self-care (01) | DRG 725 ==
LOC: ER 09:35 → EDBD 09:35 → OVERFLOW 15:20 → WEST WING 09-25 03:37
PROVIDERS: ADMIT Internal Medicine; ATTEND Internal Medicine Geriatric Medicine
PROC: 5A1D70Z Performance of Urinary Filtration, Intermittent, Less than 6 Hours Per Day (ICD-10-PCS; 2023-09-25)
PROC: 0W993ZZ Drainage of Right Pleural Cavity, Percutaneous Approach (ICD-10-PCS; principal; 2023-09-26)
PROC: 0DB38ZX Excision of Lower Esophagus, Via Natural or Artificial Opening Endoscopic, Diagnostic (ICD-10-PCS; 2023-09-27)
PROC: 0DB78ZX Excision of Stomach, Pylorus, Via Natural or Artificial Opening Endoscopic, Diagnostic (ICD-10-PCS; 2023-09-27)
PROC: 5A1D70Z Performance of Urinary Filtration, Intermittent, Less than 6 Hours Per Day (ICD-10-PCS; 2023-09-27)
PROC: 0W9B3ZZ Drainage of Left Pleural Cavity, Percutaneous Approach (ICD-10-PCS; 2023-09-28)
PROC: 5A1D70Z Performance of Urinary Filtration, Intermittent, Less than 6 Hours Per Day (ICD-10-PCS; 2023-09-29)
DX: N40.1 Benign prostatic hyperplasia with lower urinary tract symptoms (principal); N18.6 End stage renal disease; N13.30 Unspecified hydronephrosis; J90 Pleural effusion, not elsewhere classified; I12.0 Hypertensive chronic kidney disease with stage 5 chronic kidney disease or end stage renal disease; J98.11 Atelectasis; Z20.822 Contact with and (suspected) exposure to COVID-19; E11.22 Type 2 diabetes mellitus with diabetic chronic kidney disease; D35.02 Benign neoplasm of left adrenal gland; E78.5 Hyperlipidemia, unspecified; F41.9 Anxiety disorder, unspecified; K80.20 Calculus of gallbladder without cholecystitis without obstruction; E66.9 Obesity, unspecified; K31.84 Gastroparesis; D35.00 Benign neoplasm of unspecified adrenal gland; R13.10 Dysphagia, unspecified; N32.89 Other specified disorders of bladder; R33.8 Other retention of urine; N32.0 Bladder-neck obstruction; J47.9 Bronchiectasis, uncomplicated; K22.89 Other specified disease of esophagus; Z99.2 Dependence on renal dialysis; Z68.22 Body mass index [BMI] 22.0-22.9, adult; Z79.4 Long term (current) use of insulin
CPT/HCPCS: 32555; 36415; 71045; 71250; 74176; 76775; 80048; 80053; 80074; 81001; 81003; 82024; 82533; 82570; 82728; 83540; 83550; 83690; 83735; 83986; 84100; 84132; 84154; 84300; 85014; 85018; 85025; 85610; 85730; 86850; 86900; 86901; 87081; 87086; 87205; 87426; 87804; 89051; 90935; 92507; 92610; 93005; 97110; 97116; 97163; 97530; G0378; J1642

== ENCOUNTER 2023-10-17 09:13 | Emergency (ER) | payer OTHER, MEDICAID ==
[~2023-10-17] VITALS: Ht 172.7 cm; Wt 61.3 kg
[~2023-10-17 09:13] MED LIST changes: -DOXY1CAP57 PO; +NYS5LQ MT; +TAMS-35 PO
[2023-10-17 09:50] VITALS: PULSE 91; RESP 18; O2SAT 97
[2023-10-17 10:24] LABS: Basophils # (auto) 0.1 10 ^3/uL (0-0.2); Eosinophils # (auto) 0.3 10 ^3/uL (0-0.8); Hematocrit 33.3 % (41.0-53.0); Hemoglobin 11.5 g/dL (13.5-17.5); Lymphocytes % (auto) 11.6 % (10.0-50.0); Mean Corpuscular Hemoglobin 32.5 pg (28.0-32.0); Mean Corpuscular Hgb Conc. 34.4 g/dL (32.0-36.0); Mean Corpuscular Volume 94.7 fL (80.0-100.0); Monocytes # (auto) 1.1 10 ^3/uL (0-1.3); Monocytes % (auto) 13.2 % (0.0-12.0); Neutrophils # (auto) 5.8 10 ^3/uL (1.6-8.6); Neutrophils % (auto) 70.2 % (37.0-80.0); Red Blood Cells 3.52 10^6/uL (4.5-5.90); Red Cell Distribution Width 15.1 % (11.8-14.3); White Blood Cell 8.3 10^3/uL (4.4-10.8)
[2023-10-17 10:44] LABS: Albumin 3.5 g/dL (3.2-4.8); Alkaline Phosphatase 101 U/L (46-116); Anion Gap 3 (5-15); Aspartate Aminotransferase < 8 U/L (13-40); BUN/Creatinine Ratio 7.3 (10.0-20.0); Bilirubin, Total 0.3 mg/dL (0.2-1.0); Blood Urea Nitrogen 21 mg/dL (9-23); Calcium 8.5 mg/dL (8.7-10.4); Carbon Dioxide 31 mmol/L (20-30); Chloride 100 mmol/L (98-107); Glucose 182 mg/dL (74-106); Potassium 4.4 mmol/L (3.5-5.1); Sodium 134 mmol/L (136-145); Total Protein 6.6 g/dL (5.7-8.2)
[2023-10-17 11:00] LABS: Alanine Aminotransferase < 9 U/L (7-40)
[2023-10-17] MEDS ORDERED: CEPH250C PO (11:34)
[2023-10-17] MEDS ORDERED: CEPHALEXIN 250 MG CAP PO ONE (11:45)
[2023-10-17 12:02] VITALS: BP 170/103; PULSE 84; RESP 18; TEMP 98.6; O2SAT 97
== END 2023-10-17 12:12 | disposition home or self-care (01) ==
LOC: ER 09:13 → EDBD 09:13 → ER 12:12
DX: L03.116 Cellulitis of left lower limb (principal); L03.115 Cellulitis of right lower limb; E78.5 Hyperlipidemia, unspecified; E11.22 Type 2 diabetes mellitus with diabetic chronic kidney disease; I12.0 Hypertensive chronic kidney disease with stage 5 chronic kidney disease or end stage renal disease; N18.6 End stage renal disease; Z79.899 Other long term (current) drug therapy
CPT/HCPCS: 36415; 80053; 83036; 83605; 85025

== ENCOUNTER 2023-10-20 10:14 | Inpatient (IN) | payer MEDICARE, MEDICAID ==
[~2023-10-20] VITALS: Ht 152.4 cm; Wt 63.7 kg
[~2023-10-20 10:14] MED LIST changes: +CEPH250C PO
[2023-10-20 11:12] LABS: Basophils # (auto) 0.1 10 ^3/uL (0-0.2); Basophils % (auto) 1.2 % (0.0-2.0); Eosinophils # (auto) 0.5 10 ^3/uL (0-0.8); Eosinophils % (auto) 6.8 % (0.0-7.0); Hematocrit 35.9 % (41.0-53.0); Hemoglobin 11.9 g/dL (13.5-17.5); Lymphocytes # (auto) 0.9 10 ^3/uL (0.4-5.4); Lymphocytes % (auto) 13.8 % (10.0-50.0); Mean Corpuscular Hemoglobin 32.1 pg (28.0-32.0); Mean Corpuscular Hgb Conc. 33.3 g/dL (32.0-36.0); Mean Corpuscular Volume 96.3 fL (80.0-100.0); Monocytes # (auto) 0.7 10 ^3/uL (0-1.3); Monocytes % (auto) 10.1 % (0.0-12.0); Neutrophils # (auto) 4.6 10 ^3/uL (1.6-8.6); Neutrophils % (auto) 68.1 % (37.0-80.0); Red Blood Cells 3.73 10^6/uL (4.5-5.90); Red Cell Distribution Width 15.5 % (11.8-14.3); White Blood Cell 6.8 10^3/uL (4.4-10.8)
[2023-10-20 11:27] LABS: Chloride 105 mmol/L (98-107); Potassium 4.6 mmol/L (3.5-5.1); Sodium 134 mmol/L (136-145)
[2023-10-20 11:28] LABS: Anion Gap 9 (5-15); Calcium 8.8 mg/dL (8.7-10.4)
[2023-10-20 11:33] LABS: Blood Urea Nitrogen 29 mg/dL (9-23); Glucose 178 mg/dL (74-106)
[2023-10-20 11:41] LABS: Carbon Dioxide 20 mmol/L (20-30)
[2023-10-20 13:38] LABS: Urine Bacteria FEW /hpf (None Seen); Urine Blood Negative /uL (Negative); Urine Color Yellow (Yellow); Urine Mucus FEW (None Seen); Urine Protein, UAD 1+ (Negative); Urine Specific Gravity 1.034 (1.001-1.035); Urine Urobilinogen 4 mg/dL (Negative); Urine WBC 9 /hpf (0 - 3)
[2023-10-20 13:47] LABS: Urine Clarity Cloudy (Clear)
[2023-10-20] MEDS: SODIUM CHLORIDE 0.9% 1,000 ML IV ONE (14:26)
[2023-10-20 21:00] VITALS: PULSE 96; RESP 20; O2SAT 98
[2023-10-20] MEDS ORDERED: ACETAMINOPHEN 325 MG TAB PO PRN (21:45)
[2023-10-20] MEDS ORDERED: HYDROcodone-ACET 5/325MG TAB PO PRN (21:45)
[2023-10-20] MEDS ORDERED: DEXTROSE (50%) 50ML SYRG IV PRN (21:45)
[2023-10-20] MEDS ORDERED: ONDANSETRON HCL 4 MG/2 ML VIAL IV PRN (21:45)
[2023-10-20] MEDS: ACCU-CHEK COMFORT CURVE STRIP VI SCH (22:00)
[2023-10-20] MEDS: InsuLIN REG 1unit/0.01ml Soln (100units/ml) SC SCH (22:42)
[2023-10-20] MEDS: cloNIDine HCL 0.1 MG TAB PO PRN (22:43)
[2023-10-20] MEDS: ATORVASTATIN 20 MG TAB PO SCH (22:43)
[2023-10-20] MEDS: PIPERACILLIN-TAZOB 2.25GM 50 ML IV ONE (22:44)
[2023-10-21] VITALS (9 sets, daily range): BP systolic 127–161; BP diastolic 60–98; PULSE 71–89; RESP 16–19; TEMP 94.2–98.4; O2SAT 96–100
[2023-10-21] MEDS: hydrALAZINE HCL 20 MG/ML VL IV ONE (03:35)
[2023-10-21 05:56] LABS: Basophils # (auto) 0.1 10 ^3/uL (0-0.2); Basophils % (auto) 1.2 % (0.0-2.0); Eosinophils # (auto) 0.5 10 ^3/uL (0-0.8); Eosinophils % (auto) 6.2 % (0.0-7.0); Hematocrit 33.9 % (41.0-53.0); Hemoglobin 11.1 g/dL (13.5-17.5); Lymphocytes # (auto) 0.7 10 ^3/uL (0.4-5.4); Lymphocytes % (auto) 9.9 % (10.0-50.0); Mean Corpuscular Hgb Conc. 32.8 g/dL (32.0-36.0); Mean Corpuscular Volume 94.5 fL (80.0-100.0); Monocytes # (auto) 0.8 10 ^3/uL (0-1.3); Monocytes % (auto) 10.4 % (0.0-12.0); Neutrophils # (auto) 5.4 10 ^3/uL (1.6-8.6); Neutrophils % (auto) 72.3 % (37.0-80.0); Red Blood Cells 3.59 10^6/uL (4.5-5.90); Red Cell Distribution Width 15.3 % (11.8-14.3); White Blood Cell 7.5 10^3/uL (4.4-10.8)
[2023-10-21 06:02] LABS: Alkaline Phosphatase 100 U/L (46-116); Anion Gap 10 (5-15); BUN/Creatinine Ratio 9.4 (10.0-20.0); Calcium 8.4 mg/dL (8.7-10.4); Carbon Dioxide 19 mmol/L (20-30); Chloride 108 mmol/L (98-107); Glucose 75 mg/dL (74-106); Potassium 4.5 mmol/L (3.5-5.1); Sodium 137 mmol/L (136-145)
[2023-10-21 06:03] LABS: Albumin 3.1 g/dL (3.2-4.8); Aspartate Aminotransferase < 8 U/L (13-40); Bilirubin, Total 0.2 mg/dL (0.2-1.0)
[2023-10-21 06:17] LABS: Blood Urea Nitrogen 39 mg/dL (9-23)
[2023-10-21 06:18] LABS: Alanine Aminotransferase < 9 U/L (7-40)
[2023-10-21] MEDS: PANTOPRAZOLE 40 MG TAB PO SCH (06:18)
[2023-10-21] MEDS: amLODIPine BESYLATE 5 MG TAB PO SCH (11:05)
[2023-10-21] MEDS: PIPERACILLIN-TAZOB 2.25GM 50 ML IV SCH (11:06)
[2023-10-21] MEDS: FUROSEMIDE 20 MG TAB PO SCH (11:15)
[2023-10-21] MEDS: CALCIUM ACETATE 667 MG CAP PO SCH (12:00)
[2023-10-21] MEDS: SODIUM CHL 0.9% 1000 ML BAG XX ONE (13:15)
[2023-10-21] MEDS: TAMSULOSIN HYDROCHLORIDE 0.4 MG CAP PO SCH (18:36)
[2023-10-22] VITALS (8 sets, daily range): BP systolic 103–155; BP diastolic 47–79; PULSE 63–89; RESP 16–19; TEMP 97.3–98.4; O2SAT 95–98
[2023-10-22] MEDS: TEMAZEPAM 15 MG CAP PO ONE (03:41)
[2023-10-22 07:16] LABS: Basophils # (auto) 0 10 ^3/uL (0-0.2); Basophils % (auto) 0.5 % (0.0-2.0); Eosinophils # (auto) 0 10 ^3/uL (0-0.8); Eosinophils % (auto) 0.4 % (0.0-7.0); Hemoglobin 10.6 g/dL (13.5-17.5); Lymphocytes # (auto) 0.4 10 ^3/uL (0.4-5.4); Lymphocytes % (auto) 5.2 % (10.0-50.0); Mean Corpuscular Hemoglobin 32.2 pg (28.0-32.0); Mean Corpuscular Volume 94.6 fL (80.0-100.0); Monocytes # (auto) 0.8 10 ^3/uL (0-1.3); Monocytes % (auto) 9.9 % (0.0-12.0); Neutrophils # (auto) 7.1 10 ^3/uL (1.6-8.6); Red Blood Cells 3.28 10^6/uL (4.5-5.90); Red Cell Distribution Width 15.4 % (11.8-14.3); White Blood Cell 8.4 10^3/uL (4.4-10.8)
[2023-10-22 07:40] LABS: Albumin 2.8 g/dL (3.2-4.8); Alkaline Phosphatase 83 U/L (46-116); Anion Gap 4 (5-15); Aspartate Aminotransferase < 8 U/L (13-40); BUN/Creatinine Ratio 7.3 (10.0-20.0); Blood Urea Nitrogen 21 mg/dL (9-23); Calcium 8.3 mg/dL (8.7-10.4); Chloride 101 mmol/L (98-107); Glucose 82 mg/dL (74-106); Magnesium 1.8 mg/dL (1.6-2.6); Potassium 4.3 mmol/L (3.5-5.1); Sodium 137 mmol/L (136-145)
[2023-10-22 07:41] LABS: Bilirubin, Total 0.2 mg/dL (0.2-1.0); Total Protein 5.7 g/dL (5.7-8.2)
[2023-10-22 07:42] LABS: Alanine Aminotransferase < 9 U/L (7-40); Carbon Dioxide 32 mmol/L (20-30)
[2023-10-22] MEDS ORDERED: DOXY1CAP57 PO (12:50)
[2023-10-22] MEDS ORDERED: BACDST PO (12:59)
[2023-10-23] VITALS (7 sets, daily range): BP systolic 140–193; BP diastolic 61–90; PULSE 80–97; RESP 14–17; TEMP 36.8; O2SAT 92–95
[2023-10-23 06:23] LABS: Anion Gap 5 (5-15); Carbon Dioxide 29 mmol/L (20-30); Chloride 100 mmol/L (98-107); Potassium 5.1 mmol/L (3.5-5.1); Sodium 134 mmol/L (136-145)
[2023-10-23 06:24] LABS: Calcium 8.1 mg/dL (8.7-10.4)
[2023-10-23 06:29] LABS: BUN/Creatinine Ratio 7.1 (10.0-20.0); Blood Urea Nitrogen 26 mg/dL (9-23); Glucose 150 mg/dL (74-106)
[2023-10-23 06:31] LABS: Basophils # (auto) 0.1 10 ^3/uL (0-0.2); Basophils % (auto) 0.9 % (0.0-2.0); Eosinophils # (auto) 0.2 10 ^3/uL (0-0.8); Eosinophils % (auto) 2.8 % (0.0-7.0); Hematocrit 32.1 % (41.0-53.0); Hemoglobin 10.7 g/dL (13.5-17.5); Lymphocytes # (auto) 0.9 10 ^3/uL (0.4-5.4); Lymphocytes % (auto) 13.5 % (10.0-50.0); Mean Corpuscular Hemoglobin 31.6 pg (28.0-32.0); Mean Corpuscular Hgb Conc. 33.2 g/dL (32.0-36.0); Mean Corpuscular Volume 95.2 fL (80.0-100.0); Monocytes # (auto) 0.7 10 ^3/uL (0-1.3); Monocytes % (auto) 10.8 % (0.0-12.0); Phosphorus 2.5 mg/dL (2.4-5.1); Red Blood Cells 3.37 10^6/uL (4.5-5.90); Red Cell Distribution Width 15.6 % (11.8-14.3); White Blood Cell 6.9 10^3/uL (4.4-10.8)
[2023-10-23 08:06] LABS: PSA Free 0.38 ng/mL; Prostate Specific Antigen 1.1 ng/mL (0.0-4.0)
[2023-10-23] MEDS ORDERED: SODIUM CHL 0.9% 1000 ML BAG XX ONE (09:00)
[2023-10-23] MEDS ORDERED: EPOETIN ALFA-EPBX 4,000 UNIT/ML VIAL SC ONE (21:00)
== END 2023-10-23 17:17 | disposition home health service (06) | DRG 871 ==
LOC: EDBD 10:14 → ER 10:16 → EAST 21:42 → OVERFLOW 21:42 → EAST 23:38
PROVIDERS: ADMIT Nurse Practitioner; ATTEND Internal Medicine Geriatric Medicine
PROC: 5A1D70Z Performance of Urinary Filtration, Intermittent, Less than 6 Hours Per Day (ICD-10-PCS; principal; 2023-10-21)
DX: A41.9 Sepsis, unspecified organism (principal); N18.6 End stage renal disease; I12.0 Hypertensive chronic kidney disease with stage 5 chronic kidney disease or end stage renal disease; L03.115 Cellulitis of right lower limb; L03.116 Cellulitis of left lower limb; N13.6 Pyonephrosis; J90 Pleural effusion, not elsewhere classified; D63.1 Anemia in chronic kidney disease; E78.5 Hyperlipidemia, unspecified; E11.22 Type 2 diabetes mellitus with diabetic chronic kidney disease; N40.0 Benign prostatic hyperplasia without lower urinary tract symptoms; S91.302A Unspecified open wound, left foot, initial encounter; S91.301A Unspecified open wound, right foot, initial encounter; X58.XXXA Exposure to other specified factors, initial encounter; L97.529 Non-pressure chronic ulcer of other part of left foot with unspecified severity; E11.65 Type 2 diabetes mellitus with hyperglycemia; Z79.2 Long term (current) use of antibiotics; Z79.899 Other long term (current) drug therapy; Z99.2 Dependence on renal dialysis; Z83.3 Family history of diabetes mellitus; Y93.89 Activity, other specified; Y92.89 Other specified places as the place of occurrence of the external cause; Y99.8 Other external cause status
CPT/HCPCS: 36415; 73700; 76775; 80048; 80053; 81001; 82306; 82962; 83605; 83735; 84100; 84154; 84484; 85025; 87040; 87081; 87340; 90935; 93970; 96365; 99291; G0378; J1642; J1815; J2543

== ENCOUNTER 2023-12-29 11:02 | Inpatient (IN) | payer OTHER, MEDICAID ==
[~2023-12-29] VITALS: Ht 175.3 cm; Wt 57.9 kg
[~2023-12-29 11:02] MED LIST changes: +BACDST PO; -CEPH250C PO
[2023-12-29 13:29] LABS: Basophils # (auto) 0.1 10 ^3/uL (0-0.2); Eosinophils # (auto) 0.3 10 ^3/uL (0-0.8); Eosinophils % (auto) 5.3 % (0.0-7.0); Hematocrit 36.3 % (41.0-53.0); Hemoglobin 12.2 g/dL (13.5-17.5); Lymphocytes # (auto) 1.5 10 ^3/uL (0.4-5.4); Lymphocytes % (auto) 24.8 % (10.0-50.0); Mean Corpuscular Hemoglobin 31.1 pg (28.0-32.0); Mean Corpuscular Hgb Conc. 33.7 g/dL (32.0-36.0); Mean Corpuscular Volume 92.3 fL (80.0-100.0); Monocytes # (auto) 0.8 10 ^3/uL (0-1.3); Monocytes % (auto) 12.8 % (0.0-12.0); Neutrophils # (auto) 3.3 10 ^3/uL (1.6-8.6); Neutrophils % (auto) 56.1 % (37.0-80.0); Nucleated Red Blood Cells % 0.1 %; Platelet Count (auto) 260 10^3/uL (140-450); Red Blood Cells 3.93 10^6/uL (4.5-5.90); Red Cell Distribution Width 15.4 % (11.8-14.3); White Blood Cell 5.9 10^3/uL (4.4-10.8)
[2023-12-29 13:42] LABS: Chloride 98 mmol/L (98-107); Potassium 5.4 mmol/L (3.5-5.1); Sodium 131 mmol/L (136-145)
[2023-12-29 13:43] LABS: Anion Gap 7 (5-15); Calcium 8.9 mg/dL (8.7-10.4); Carbon Dioxide 26 mmol/L (20-31)
[2023-12-29 13:48] LABS: BUN/Creatinine Ratio 6.7 (10.0-20.0); Blood Urea Nitrogen 39 mg/dL (9-23); Glucose 94 mg/dL (74-106)
[2023-12-29] MEDS ORDERED: MORPHINE SULFATE INJ 2 MG/ml SYRG IV PRN (14:45)
[2023-12-29] MEDS ORDERED: HYDROcodone-ACET 5/325MG TAB PO PRN (14:45)
[2023-12-29] MEDS ORDERED: ONDANSETRON HCL 4 MG/2 ML VIAL IV PRN (14:45)
[2023-12-29] MEDS ORDERED: cloNIDine HCL 0.1 MG TAB PO PRN (15:45)
[2023-12-29 17:36] VITALS: PULSE 76; RESP 18; O2SAT 97
[2023-12-29 17:51] VITALS: BP 145/76; PULSE 71; PULSE 78; RESP 20; RESP 98; TEMP 98.3; O2SAT 98
[2023-12-29] MEDS: TAMSULOSIN HYDROCHLORIDE 0.4 MG CAP PO SCH (18:00)
[2023-12-29 20:00] VITALS: PULSE 87; RESP 18; O2SAT 96
[2023-12-29 21:00] VITALS: BP 156/92; PULSE 87; RESP 18; TEMP 97.8; O2SAT 96
[2023-12-29 21:52] LABS: Urine Bacteria None Seen /hpf (None Seen)
[2023-12-29 22:00] LABS: Urine Blood 2+ /uL (Negative); Urine Clarity Ex.Turbid (Clear); Urine Color Light-Brown (Yellow); Urine Protein, UAD 3+ (Negative); Urine Urobilinogen Normal (Negative); Urine WBC 3275 /hpf (0 - 3); Urine WBC Clumps PRESENT /hpf (None Seen); Urine pH 7.5 (5.0-9.0)
[2023-12-29] MEDS: ATORVASTATIN 20 MG TAB PO SCH (22:00)
[2023-12-30] VITALS (7 sets, daily range): BP systolic 107–157; BP diastolic 60–80; PULSE 71–96; RESP 18; TEMP 97.3–98.3; O2SAT 96–98
[2023-12-30] MEDS: PANTOPRAZOLE 40 MG TAB PO SCH (05:38)
[2023-12-30 07:30] LABS: Basophils # (auto) 0 10 ^3/uL (0-0.2); Basophils % (auto) 0.9 % (0.0-2.0); Eosinophils # (auto) 0.4 10 ^3/uL (0-0.8); Hematocrit 33.6 % (41.0-53.0); Hemoglobin 11.4 g/dL (13.5-17.5); Lymphocytes % (auto) 21.2 % (10.0-50.0); Mean Corpuscular Hemoglobin 31.4 pg (28.0-32.0); Mean Corpuscular Volume 92.3 fL (80.0-100.0); Monocytes # (auto) 0.5 10 ^3/uL (0-1.3); Monocytes % (auto) 10.9 % (0.0-12.0); Neutrophils # (auto) 2.9 10 ^3/uL (1.6-8.6); Platelet Count (auto) 254 10^3/uL (140-450); Red Blood Cells 3.64 10^6/uL (4.5-5.90); Red Cell Distribution Width 15.2 % (11.8-14.3); White Blood Cell 4.9 10^3/uL (4.4-10.8)
[2023-12-30 07:43] LABS: Chloride 98 mmol/L (98-107); Potassium 5.5 mmol/L (3.5-5.1); Sodium 130 mmol/L (136-145)
[2023-12-30 07:44] LABS: Anion Gap 8 (5-15); Carbon Dioxide 24 mmol/L (20-31)
[2023-12-30 07:45] LABS: Calcium 8.5 mg/dL (8.7-10.4)
[2023-12-30 07:50] LABS: BUN/Creatinine Ratio 6.6 (10.0-20.0); Blood Urea Nitrogen 42 mg/dL (9-23); Glucose 81 mg/dL (74-106)
[2023-12-30] MEDS: amLODIPine BESYLATE 5 MG TAB PO SCH (10:00)
[2023-12-30] MEDS: SODIUM ZIRCONIUM CYCL 10 GM PAK PO ONE (12:15)
[2023-12-30] MEDS ORDERED: SODIUM CHL 0.9% 1000 ML BAG XX ONE (12:15)
== END 2023-12-30 18:25 | disposition home or self-care (01) | DRG 551 ==
LOC: EDBD 11:02 → ER 11:02 → OVERFLOW 14:45 → CENTRAL 17:45
PROVIDERS: ADMIT Registered Nurse General Practice; ATTEND Internal Medicine Geriatric Medicine
PROC: 5A1D70Z Performance of Urinary Filtration, Intermittent, Less than 6 Hours Per Day (ICD-10-PCS; principal; 2023-12-30)
DX: M54.50 Low back pain, unspecified (principal); N18.6 End stage renal disease; I13.2 Hypertensive heart and chronic kidney disease with heart failure and with stage 5 chronic kidney disease, or end stage renal disease; I50.32 Chronic diastolic (congestive) heart failure; K56.7 Ileus, unspecified; J98.11 Atelectasis; N39.0 Urinary tract infection, site not specified; E11.621 Type 2 diabetes mellitus with foot ulcer; E11.22 Type 2 diabetes mellitus with diabetic chronic kidney disease; N40.0 Benign prostatic hyperplasia without lower urinary tract symptoms; L97.509 Non-pressure chronic ulcer of other part of unspecified foot with unspecified severity; K57.30 Diverticulosis of large intestine without perforation or abscess without bleeding; I16.0 Hypertensive urgency; E87.5 Hyperkalemia; E27.8 Other specified disorders of adrenal gland; E11.65 Type 2 diabetes mellitus with hyperglycemia; G89.29 Other chronic pain; E78.5 Hyperlipidemia, unspecified; Z99.2 Dependence on renal dialysis; Z83.3 Family history of diabetes mellitus; Z79.899 Other long term (current) drug therapy
CPT/HCPCS: 36415; 71045; 74176; 76604; 80048; 81001; 84484; 85025; 90935; 93005; 99291; G0378